=== PATIENT | female | born 1965 | race Caucasian/White ===

== ENCOUNTER 2018-11-23 12:28 | Emergency (ER) | payer OTHER ==
[~2018-11-23] VITALS: Ht 160 cm; Wt 68.0 kg
[2018-11-23] MEDS ORDERED: KETOROLAC TROMETHAMINE INJ 30 MG/ML VIAL ONE (12:40)
--- NOTE | 2018-11-23 12:45 | NUR ---
[id number], FROM 03/13, C/O R SHOULDER PAIN, S/P FALL, DIZZY, COUGH, BLURRED VISION, + ETOH. PATIENT SCREAMING AND YELLING IN THE ROOM, RESTLESS. MD AWARE.
[2018-11-23] MEDS ORDERED: GABA-532 PO (12:52)
[2018-11-23] MEDS ORDERED: INSU100I26 SQ (12:52)
[2018-11-23] MEDS ORDERED: ATOR10TA PO (12:52)
[2018-11-23] MEDS ORDERED: FENO200C PO (12:52)
[2018-11-23] MEDS ORDERED: OMEP20CA10 PO (12:52)
[2018-11-23] MEDS ORDERED: NAPR-1192 PO (12:52)
[2018-11-23] MEDS ORDERED: LISI-607 PO (12:52)
[2018-11-23] MEDS ORDERED: SITA100T PO (12:52)
[2018-11-23] MEDS ORDERED: GLIP10TA11 PO (12:52)
--- NOTE | 2018-11-23 12:54 | NUR ---
Patient wants to leave against medical advice, MD aware. Patient refused treatment and to be seen by the doctors in this hospital. Explained risks and benefits and alternatives, patient verbalized understanding. Per patient, "im fine i want to get out of here, you asians and lithuanian and who knows what." Peripheral IV removed. Patient left the facility in stable condition.
[2018-11-23] MEDS ORDERED: KETOROLAC TROMETHAMINE INJ 30 MG/ML VIAL IV ONE (13:00)
[2018-11-23] MEDS ORDERED: IV NS 0.9% 1,000 ML BAG IV ONE (13:00)
[2018-11-23 13:02] VITALS: BP 118/65
== END 2018-11-23 13:03 | disposition left against medical advice (07) ==
LOC: ER 12:32
DX: F10.129 Alcohol abuse with intoxication, unspecified (principal); R07.89 Other chest pain; E11.9 Type 2 diabetes mellitus without complications; I10 Essential (primary) hypertension; Y90.9 Presence of alcohol in blood, level not specified; Z88.1 Allergy status to other antibiotic agents; Z79.4 Long term (current) use of insulin
CPT/HCPCS: 96374; 99283; J1885

== ENCOUNTER 2019-09-01 09:48 | Emergency (ER) | payer OTHER ==
[~2019-09-01] VITALS: Ht 167.6 cm; Wt 74.8 kg
[~2019-09-01 09:48] MED LIST: ATOR10TA PO; FENO200C PO; GABA-532 PO; GLIP10TA11 PO; INSU100I26 SQ; LISI-607 PO; NAPR-1192 PO; OMEP20CA15 PO; SITA100T PO
[2019-09-01] MEDS ORDERED: ONDANSETRON HCL/PF 4 MG/2 ML VIAL IVP ONE (10:00)
[2019-09-01] MEDS ORDERED: IV NS 0.9% 1,000 ML BAG IV ONE (10:00)
[2019-09-01] MEDS ORDERED: ONDANSETRON HCL/PF 4 MG/2 ML VIAL ONE (10:12)
[2019-09-01 10:15] LABS: BASOPHILS # (AUTO) 0.1 /CMM (0.0-0.2); EOSINOPHILS % (AUTO) 1.6 % (0.0-6.0); HEMATOCRIT 41 % (33-45); HEMOGLOBIN 13.5 g/dL (11.5-14.8); LYMPHOCYTES # (AUTO) 5.8 /CMM (0.8-4.8); LYMPHOCYTES % (AUTO) 50.6 % (20.0-44.0); MEAN CORPUSCULAR HGB CONC 33 g/dl (31.0-36.0); MEAN CORPUSCULAR VOLUME 87 fL (82-100); MONOCYTES # (AUTO) 0.6 /CMM (0.1-1.30); MONOCYTES % (AUTO) 5.2 % (2.0-12.0); NEUTROPHILS # (AUTO) 4.8 /CMM (1.8-8.9); NEUTROPHILS % (AUTO) 41.6 % (43.0-81.0); PLATELET COUNT (AUTO) 259 /CMM (150-450); RED BLOOD CELL COUNT(AUTO) 4.72 MIL/uL (4.0-5.2); WHITE BLOOD COUNT (AUTO) 11.5 K/uL (4.3-11.0)
--- NOTE | 2019-09-01 10:21 | NUR ---
patient BIB paramedics c/o nausea vomiting and diarrhea, and epigastric pain x 3 days. On room air, breathing evenly and unlabored. connected to the monitor and pulse ox. kept comfortable, will continue to monitor accordingly.
[2019-09-01 10:25] LABS: CALCIUM, SERUM 8.6 mg/dL (8.5-10.1); CARBON DIOXIDE 23 mmol/L (21-32); CHLORIDE 99 mmol/L (98-107); GLUCOSE 255 mg/dL (74-106); POTASSIUM 3.9 mmol/L (3.5-5.1); SODIUM SERUM 134 mmol/L (136-145); UREA NITROGEN, BLOOD 14 mg/dL (7-18)
[2019-09-01 10:31] LABS: ALANINE AMINOTRANSFERASE 80 U/L (12-78); ALBUMIN 3.7 g/dL (3.4-5.0); ALKALINE PHOSPHATASE 161 U/L (46-116); ASPARTATE AMINOTRANSFERASE 30 U/L (15-37); BILIRUBIN,DIRECT 0.1 mg/dL (0.0-0.2); BILIRUBIN,TOTAL 0.2 mg/dL (0.2-1.0); TOTAL PROTEIN, SERUM 7.7 g/dL (6.4-8.2)
[2019-09-01 11:24] VITALS: BP 141/81
--- NOTE | 2019-09-01 11:25 | NUR ---
Patient discharged to home in stable condition. Written and verbal after care instructions given. Patient verbalizes understanding of instruction.IV removed. Catheter intact and site benign. Pressure and 4x4 applied to site. No bleeding noted.
== END 2019-09-01 11:25 | disposition home or self-care (01) ==
LOC: ER 09:57
DX: B34.9 Viral infection, unspecified (principal); R11.2 Nausea with vomiting, unspecified; I10 Essential (primary) hypertension; E11.9 Type 2 diabetes mellitus without complications; F17.200 Nicotine dependence, unspecified, uncomplicated; Z88.1 Allergy status to other antibiotic agents; Z79.4 Long term (current) use of insulin; Z79.899 Other long term (current) drug therapy
CPT/HCPCS: 36415; 71045; 80048; 80076; 84484; 85025; 93005; 96361; 96374; 99284; J2405; J7030

== ENCOUNTER 2019-09-22 04:41 | Emergency (ER) | payer OTHER ==
[~2019-09-22] VITALS: Ht 160 cm; Wt 63.5 kg
[2019-09-22] MEDS ORDERED: ONDANSETRON HCL/PF 4 MG/2 ML VIAL ONE (04:53)
[2019-09-22] MEDS ORDERED: MORPHINE SULFATE INJ 4 MG/ML DISP.SYRIN ONE (04:53)
--- NOTE | 2019-09-22 04:55 | NUR ---
PT BIBA C/O MID EPIGASTRIC ABDOMINAL PAIN SINCE SAT 06/12 +NVD. PER PT SHE DIDNT TAKE HER INSULIN SINCE SAT. PT AAOX4, VSS, BREATHING EVEN AND UNLABORED ON ROOM AIR W/ AND NOTED. CONNECTED TO THE MONITOR AND POX.
[2019-09-22] MEDS ORDERED: IV NS 0.9% 1,000 ML BAG IV ONE (05:00)
[2019-09-22] MEDS ORDERED: MORPHINE SULFATE INJ 2 MG/ML DISP.SYRIN IV ONE ×2 (05:00→06:30)
[2019-09-22] MEDS ORDERED: ONDANSETRON HCL/PF 4 MG/2 ML VIAL IVP ONE (05:00)
--- NOTE | 2019-09-22 05:05 | NUR ---
BLOOD COLLECTED AND SENT TO LAB
[2019-09-22 05:16] LABS: BASOPHILS # (AUTO) 0.1 /CMM (0.0-0.2); BASOPHILS % (AUTO) 1.2 % (0.0-2.0); EOSINOPHILS % (AUTO) 3.2 % (0.0-6.0); HEMATOCRIT 40 % (33-45); HEMOGLOBIN 12.9 g/dL (11.5-14.8); LYMPHOCYTES # (AUTO) 2.9 /CMM (0.8-4.8); LYMPHOCYTES % (AUTO) 25.4 % (20.0-44.0); MEAN CORPUSCULAR HGB CONC 32 g/dl (31.0-36.0); MEAN CORPUSCULAR VOLUME 87 fL (82-100); MONOCYTES # (AUTO) 0.7 /CMM (0.1-1.30); MONOCYTES % (AUTO) 5.8 % (2.0-12.0); NEUTROPHILS # (AUTO) 7.4 /CMM (1.8-8.9); NEUTROPHILS % (AUTO) 64.4 % (43.0-81.0); PLATELET COUNT (AUTO) 329 /CMM (150-450); RED BLOOD CELL COUNT(AUTO) 4.57 MIL/uL (4.0-5.2); WHITE BLOOD COUNT (AUTO) 11.5 K/uL (4.3-11.0)
--- NOTE | 2019-09-22 05:20 | NUR ---
PT AMBULATED TO THE RESTROOM
--- NOTE | 2019-09-22 05:30 | NUR ---
PT BACK FROM THE RESTROOM.URINE SAMPLE SENT TO LAB
[2019-09-22 05:38] LABS: CALCIUM, SERUM 8.8 mg/dL (8.5-10.1); CARBON DIOXIDE 23 mmol/L (21-32); CHLORIDE 101 mmol/L (98-107); CREATININE 1.4 mg/dL (0.6-1.3); GLUCOSE 217 mg/dL (74-106); POTASSIUM 3.9 mmol/L (3.5-5.1); SODIUM SERUM 136 mmol/L (136-145); UREA NITROGEN, BLOOD 45 mg/dL (7-18)
[2019-09-22 05:43] LABS: APPEARANCE,URINE Clear (CLEAR); BILIRUBIN,URINE Negative (NEGATIVE); BLOOD, URINE Negative Ery/uL (NEGATIVE); COLOR,URINE Yellow (YELLOW); KETONES,URINE Negative (NEGATIVE); LEUKOCYTE ESTERASE ,URINE Negative (NEGATIVE); NITRITE, URINE Negative (NEGATIVE); PH,URINE 5.5 (5.0-8.0); PROTEIN,URINE Negative (NEGATIVE); UGLUCOSE Negative (NEGATIVE); UROBILINOGEN,URINE 0.2 EU/dL (0.2)
[2019-09-22 05:43] LABS: ALANINE AMINOTRANSFERASE 37 U/L (12-78); ALBUMIN 3.7 g/dL (3.4-5.0); ALKALINE PHOSPHATASE 85 U/L (46-116); ASPARTATE AMINOTRANSFERASE 18 U/L (15-37); BILIRUBIN,DIRECT 0.1 mg/dL (0.0-0.2); BILIRUBIN,TOTAL 0.4 mg/dL (0.2-1.0); LIPASE 164 U/L (73-393); TOTAL PROTEIN, SERUM 7.4 g/dL (6.4-8.2)
[2019-09-22] MEDS ORDERED: MORPHINE SULFATE INJ 2 MG/ML DISP.SYRIN ONE (06:26)
[2019-09-22 07:23] VITALS: BP 116/54
== END 2019-09-22 07:23 | disposition home or self-care (01) ==
LOC: ER 04:41
DX: R10.11 Right upper quadrant pain (principal); R10.12 Left upper quadrant pain; R11.2 Nausea with vomiting, unspecified; I10 Essential (primary) hypertension; E11.9 Type 2 diabetes mellitus without complications; F17.200 Nicotine dependence, unspecified, uncomplicated; Z88.1 Allergy status to other antibiotic agents; Z79.4 Long term (current) use of insulin; Z79.899 Other long term (current) drug therapy
CPT/HCPCS: 36415; 71045; 74176; 80048; 80076; 81001; 82010; 82962; 83690; 84484; 85025; 85730; 93005; 96361; 96374; 96375; 96376; 99284; J2270 ×2; J2405; J7030; 81000-TC

== ENCOUNTER 2019-11-12 06:15 | Emergency (ER) | payer OTHER ==
[~2019-11-12] VITALS: Ht 160 cm; Wt 60.3 kg
--- NOTE | 2019-11-12 06:39 | NUR ---
BALBIR FROM HOME FOR CHIEF COMPLAINT OF NON RADIATING CP, THAT FEELS LIKE CRUSHING PRESSURE. Pt ADMITS TO DRINKING ALCOHOL EARLIER TODAY. Pt IN BED, PLACED ON MONITOR. VS STABLE. WAITING TO BE SEEN BY .
--- NOTE | 2019-11-12 06:54 | NUR ---
CXR BEING DONE AT BEDSIDE
--- NOTE | 2019-11-12 06:54 | NUR ---
SEEN BY MD AT BEDSIDE
[2019-11-12] MEDS ORDERED: ACETAMINOPHEN 650 MG/20.3 ML UDC PO ONE (07:00)
[2019-11-12] MEDS ORDERED: IV NS 0.9% 1,000 ML BAG IV ONE (07:00)
[2019-11-12] MEDS ORDERED: ASPIRIN 325 MG TABLET PO ONE (07:00)
--- NOTE | 2019-11-12 07:25 | NUR ---
IV ACCESS STARTED ON LAC #20G. BLOOD DRAWN FOR LABS. IVF NS RUNNING.
[2019-11-12] MEDS ORDERED: ACETAMINOPHEN 325 MG TABLET ONE (07:26)
[2019-11-12] MEDS ORDERED: ASPIRIN 325 MG TABLET ONE (07:26)
[2019-11-12 07:28] LABS: BASOPHILS # (AUTO) 0.1 /CMM (0.0-0.2); BASOPHILS % (AUTO) 1.4 % (0.0-2.0); EOSINOPHILS % (AUTO) 1.1 % (0.0-6.0); HEMATOCRIT 43 % (33-45); LYMPHOCYTES # (AUTO) 5.2 /CMM (0.8-4.8); MEAN CORPUSCULAR HGB CONC 33 g/dl (31.0-36.0); MEAN CORPUSCULAR VOLUME 87 fL (82-100); MONOCYTES # (AUTO) 0.3 /CMM (0.1-1.30); MONOCYTES % (AUTO) 3.5 % (2.0-12.0); PLATELET COUNT (AUTO) 323 /CMM (150-450); RED BLOOD CELL COUNT(AUTO) 4.94 MIL/uL (4.0-5.2); WHITE BLOOD COUNT (AUTO) 9.9 K/uL (4.3-11.0)
--- NOTE | 2019-11-12 07:40 | NUR ---
[facility] FOR Pt's CALLIE. Pt IS IN BED. NO S/S OF ACUTE DISTRESS OF SOB NOTED.
--- NOTE | 2019-11-12 07:45 | NUR ---
PATIENT IS AWAKE WITH EPISODES OF CONFUSION. PATIENT REMAINS STABLE IN NO DISTRESS. WILL CONITNUE TO MONITOR
[2019-11-12 07:55] LABS: ALANINE AMINOTRANSFERASE 40 U/L (12-78); ALBUMIN 4.2 g/dL (3.4-5.0); ALKALINE PHOSPHATASE 161 U/L (46-116); ASPARTATE AMINOTRANSFERASE 34 U/L (15-37); BILIRUBIN,DIRECT 0.1 mg/dL (0.0-0.2); BILIRUBIN,TOTAL 0.2 mg/dL (0.2-1.0); CALCIUM, SERUM 8.9 mg/dL (8.5-10.1); CARBON DIOXIDE 26 mmol/L (21-32); CHLORIDE 101 mmol/L (98-107); GLUCOSE 260 mg/dL (74-106); LIPASE 196 U/L (73-393); POTASSIUM 4.9 mmol/L (3.5-5.1); SODIUM SERUM 141 mmol/L (136-145); TOTAL PROTEIN, SERUM 8.4 g/dL (6.4-8.2); UREA NITROGEN, BLOOD 19 mg/dL (7-18)
--- NOTE | 2019-11-12 08:06 | NUR ---
Patient discharged to home in stable condition. Written and verbal after care instructions given. Patient verbalizes understanding of instruction. IV removed. Catheter intact and site benign. Pressure and 4x4 applied to site. No bleeding noted.
[2019-11-12 08:19] VITALS: BP 128/82
== END 2019-11-12 08:15 | disposition home or self-care (01) ==
LOC: ER 06:15
DX: E11.65 Type 2 diabetes mellitus with hyperglycemia (principal); R11.2 Nausea with vomiting, unspecified; I10 Essential (primary) hypertension; Z88.1 Allergy status to other antibiotic agents; Z79.899 Other long term (current) drug therapy; Z79.4 Long term (current) use of insulin
CPT/HCPCS: 36415; 71045; 80048; 80076; 82962; 83690; 84484; 85025; 93005; 96360; 99285; J7030

== ENCOUNTER 2021-08-04 19:03 | Emergency (ER) | payer OTHER ==
[~2021-08-04] VITALS: Ht 160 cm; Wt 63.5 kg
[~2021-08-04 19:03] MED LIST changes: -LISI-607 PO; +LISI-768 PO
--- NOTE | 2021-08-04 19:26 | NUR ---
LAB AT BEDSIDE
[2021-08-04 19:36] LABS: BASOPHILS # (AUTO) 0.1 K/uL (0.0-0.2); BASOPHILS % (AUTO) 0.7 % (0.0-2.0); EOSINOPHILS % (AUTO) 0.2 % (0.0-6.0); HEMATOCRIT 38 % (33-45); HEMOGLOBIN 12.5 g/dL (11.5-14.8); LYMPHOCYTES # (AUTO) 5.4 K/uL (0.8-4.8); LYMPHOCYTES % (AUTO) 41.3 % (20.0-44.0); MEAN CORPUSCULAR HGB CONC 33 g/dl (31.0-36.0); MEAN CORPUSCULAR VOLUME 89 fL (82-100); MONOCYTES # (AUTO) 0.6 K/uL (0.1-1.30); MONOCYTES % (AUTO) 4.3 % (2.0-12.0); NEUTROPHILS % (AUTO) 53.5 % (43.0-81.0); PLATELET COUNT (AUTO) 241 K/uL (150-450); RED BLOOD CELL COUNT(AUTO) 4.27 MIL/uL (4.0-5.2); WHITE BLOOD COUNT (AUTO) 13.1 K/uL (4.3-11.0)
[2021-08-04 20:16] LABS: ALBUMIN 4.1 g/dL (3.4-5.0); ALCOHOL, BLOOD 364 mg/dL (0-0); ALKALINE PHOSPHATASE 135 U/L (46-116); BILIRUBIN,DIRECT 0.1 mg/dL (0.0-0.2); BILIRUBIN,TOTAL 0.4 mg/dL (0.2-1.0); CALCIUM, SERUM 8.3 mg/dL (8.5-10.1); CARBON DIOXIDE 18 mmol/L (21-32); CHLORIDE 103 mmol/L (98-107); CREATININE 1.8 mg/dL (0.6-1.3); GLUCOSE 204 mg/dL (74-106); POTASSIUM 4.5 mmol/L (3.5-5.1); SODIUM SERUM 140 mmol/L (136-145); UREA NITROGEN, BLOOD 39 mg/dL (7-18)
--- NOTE | 2021-08-04 20:26 | NUR ---
URINE COLLECTED AND SENT TO LAB
[2021-08-04 20:39] LABS: ACETAMINOPHEN < 0 ug/ml (10-30)
[2021-08-04 20:55] LABS: ALANINE AMINOTRANSFERASE 120 U/L (12-78); ASPARTATE AMINOTRANSFERASE 116 U/L (15-37)
[2021-08-04 20:56] LABS: BILIRUBIN,URINE SMALL (NEGATIVE); COLOR,URINE YELLOW (YELLOW); LEUKOCYTE ESTERASE ,URINE Trace (NEGATIVE); NITRITE, URINE Negative (NEGATIVE); PH,URINE 5.5 (5.0-8.0); PROTEIN,URINE 100 mg/dl (NEGATIVE); UGLUCOSE Negative (NEGATIVE); UROBILINOGEN,URINE 0.2 EU/dL (0.2)
[2021-08-04 20:57] LABS: BACTERIA,URINE Few /HPF (None Seen); RBC,URINE 21-50 /HPF (0-2); SQUAMOUS EPITHELIAL CELL,UR Few /HPF (None Seen)
[2021-08-05 00:25] VITALS: BP 133/70
--- NOTE | 2021-08-05 00:25 | NUR ---
Patient discharged to home in stable condition. Written and verbal after care instructions given. Patient verbalizes understanding of instruction.
== END 2021-08-05 00:25 | disposition home or self-care (01) ==
LOC: ER 19:10
DX: F10.129 Alcohol abuse with intoxication, unspecified (principal); I10 Essential (primary) hypertension; E11.9 Type 2 diabetes mellitus without complications; F17.200 Nicotine dependence, unspecified, uncomplicated; Z88.1 Allergy status to other antibiotic agents; Z79.899 Other long term (current) drug therapy; Z79.4 Long term (current) use of insulin; Y90.9 Presence of alcohol in blood, level not specified
CPT/HCPCS: 36415; 80048-TC; 80076-TC; 81001; 85025-TC; G0480

== ENCOUNTER 2021-11-01 16:29 | Emergency (ER) | payer OTHER ==
[~2021-11-01] VITALS: Ht 162.6 cm; Wt 65.8 kg
--- NOTE | 2021-11-01 16:37 | NUR ---
To ER bed 9, [id number] home, dizziness, abdominal chest wall discomfort. 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
[2021-11-01] MEDS ORDERED: IV NS 0.9% 1,000 ML BAG IV ONE ×2 (17:00→21:30)
[2021-11-01 17:13] LABS: BASOPHILS % (AUTO) 0.3 % (0.0-2.0); EOSINOPHILS % (AUTO) 0.1 % (0.0-6.0); HEMATOCRIT 39 % (33-45); LYMPHOCYTES # (AUTO) 1.9 K/uL (0.8-4.8); LYMPHOCYTES % (AUTO) 15.8 % (20.0-44.0); MEAN CORPUSCULAR HGB CONC 33 g/dl (31.0-36.0); MEAN CORPUSCULAR VOLUME 90 fL (82-100); MONOCYTES # (AUTO) 1.7 K/uL (0.1-1.30); MONOCYTES % (AUTO) 14.2 % (2.0-12.0); NEUTROPHILS # (AUTO) 8.5 K/uL (1.8-8.9); NEUTROPHILS % (AUTO) 69.6 % (43.0-81.0); PLATELET COUNT (AUTO) 325 K/uL (150-450); RED BLOOD CELL COUNT(AUTO) 4.37 MIL/uL (4.0-5.2); WHITE BLOOD COUNT (AUTO) 12.2 K/uL (4.3-11.0)
[2021-11-01] MEDS ORDERED: KETOROLAC TROMETHAMINE 15 MG/ML VIAL ONE (17:24)
[2021-11-01 17:29] LABS: ALANINE AMINOTRANSFERASE 47 U/L (12-78); ALBUMIN 4.2 g/dL (3.4-5.0); ALKALINE PHOSPHATASE 136 U/L (46-116); ASPARTATE AMINOTRANSFERASE 56 U/L (15-37); BILIRUBIN,DIRECT 0.2 mg/dL (0.0-0.2); BILIRUBIN,TOTAL 0.3 mg/dL (0.2-1.0); GLUCOSE 194 mg/dL (74-106); LIPASE 463 U/L (73-393); TOTAL PROTEIN, SERUM 9.3 g/dL (6.4-8.2)
[2021-11-01 17:40] LABS: CALCIUM, SERUM 5.3 mg/dL (8.5-10.1); CARBON DIOXIDE 10 mmol/L (21-32); CHLORIDE 71 mmol/L (98-107); CREATININE 11.6 mg/dL (0.6-1.3); POTASSIUM 2.4 mmol/L (3.5-5.1); SODIUM SERUM 117 mmol/L (136-145); UREA NITROGEN, BLOOD 94 mg/dL (7-18)
[2021-11-01] MEDS ORDERED: KETOROLAC TROMETHAMINE INJ 30 MG/ML VIAL IV ONE (18:00)
--- NOTE | 2021-11-01 18:00 | NUR ---
CALLED [facility] [place] AND OPENED UP A CASE FOR THE PT
--- NOTE | 2021-11-01 18:01 | NUR ---
GIACOMO THOMAS MD. FOR A MD TO CONSULT
--- NOTE | 2021-11-01 18:12 | NUR ---
COVID SWAB DONE AND URINE COLLECTED AND SENT TO LAB
[2021-11-01] MEDS ORDERED: ASPIRIN 81 MG TAB.CHEW PO ONE (18:30)
[2021-11-01] MEDS ORDERED: POTASSIUM CHLORIDE 20 MEQ TAB.PRT.SR PO ONE ×2 (18:30→18:48)
[2021-11-01] MEDS ORDERED: ASPIRIN EC 81 MG TABLET.DR PO ONE (18:47)
[2021-11-01 19:04] LABS: BILIRUBIN,URINE MODERATE (NEGATIVE); COLOR,URINE YELLOW (YELLOW); LEUKOCYTE ESTERASE ,URINE MODERATE (NEGATIVE); NITRITE, URINE NEGATIVE (NEGATIVE); PH,URINE 8.5 (5.0-8.0); PROTEIN,URINE TRACE mg/dl (NEGATIVE); UGLUCOSE NEGATIVE (NEGATIVE)
[2021-11-01 20:00] LABS: BACTERIA,URINE Many /HPF (None Seen); SQUAMOUS EPITHELIAL CELL,UR Moderate /HPF (None Seen); WBC,URINE 21-50 /HPF (0-3)
[2021-11-01] MEDS ORDERED: CEFTRIAXONE 1GM BAG (ER ONLY) 50 ML IV ONE ×2 (20:30→21:31)
--- NOTE | 2021-11-01 21:24 | NUR ---
ACCEPTING HOSPITAL INFO: [facility] ER Accepting MD SALOME Zaidi NUMBER [phone] ALS PRN AMB ETA [id number]
--- NOTE | 2021-11-01 21:25 | NUR ---
[facility] ER Accepting MD MCMAHON V. NUMBER [phone] ALS PRN AMB ETA [id number]
--- NOTE | 2021-11-01 21:31 | NUR ---
PER COLTON CALL BACK IF ANY CHANGES.
[2021-11-01 22:11] VITALS: BP 101/57
--- NOTE | 2021-11-01 22:25 | NUR ---
REPORT GIVEN ERICK FORBES FOR CALLIE
--- NOTE | 2021-11-01 22:47 | NUR ---
[facility] AT BEDSIDE
--- NOTE | 2021-11-01 22:55 | NUR ---
PT TX TO TRUMBULL FOR CALLIE
== END 2021-11-01 23:20 | disposition short-term general hospital (02) ==
LOC: ER 16:32
DX: N17.9 Acute kidney failure, unspecified (principal); E87.6 Hypokalemia; Z20.822 Contact with and (suspected) exposure to COVID-19; R94.31 Abnormal electrocardiogram [ECG] [EKG]; E11.9 Type 2 diabetes mellitus without complications; I10 Essential (primary) hypertension; Z79.4 Long term (current) use of insulin; Z79.84 Long term (current) use of oral hypoglycemic drugs; Z79.899 Other long term (current) drug therapy; Z88.1 Allergy status to other antibiotic agents
CPT/HCPCS: 36415; 71045; 80048; 80076; 81001; 83605; 83690; 84145; 84484; 85025; 87040 ×2; 87077; 87086; 87186; 87426; 93005; 96361; 96365; 96375; 99285; C9803; J0696; J1885; J7030

== ENCOUNTER 2022-01-04 12:37 | Emergency (ER) | payer OTHER ==
[~2022-01-04] VITALS: Ht 165.1 cm; Wt 59.0 kg
--- NOTE | 2022-01-04 12:47 | NUR ---
[id number] FOR ALTERED MENTAL STATUS. ALERT AND ORIENTED X2. THE PATIENT ADMITS THAT SHE DRUNK ALCOHOL TODAY. DOES NOT SPECIFY WHAT KIND.
[2022-01-04] MEDS ORDERED: IV NS 0.9% 1,000 ML BAG IV ONE (13:00)
[2022-01-04 13:13] LABS: BASOPHILS # (AUTO) 0.1 K/uL (0.0-0.2); BASOPHILS % (AUTO) 0.8 % (0.0-2.0); EOSINOPHILS % (AUTO) 0.4 % (0.0-6.0); HEMATOCRIT 39 % (33-45); HEMOGLOBIN 12.5 g/dL (11.5-14.8); LYMPHOCYTES # (AUTO) 6.4 K/uL (0.8-4.8); LYMPHOCYTES % (AUTO) 49.7 % (20.0-44.0); MEAN CORPUSCULAR HGB CONC 32 g/dl (31.0-36.0); MEAN CORPUSCULAR VOLUME 88 fL (82-100); MONOCYTES # (AUTO) 0.7 K/uL (0.1-1.30); MONOCYTES % (AUTO) 5.2 % (2.0-12.0); NEUTROPHILS # (AUTO) 5.7 K/uL (1.8-8.9); NEUTROPHILS % (AUTO) 43.9 % (43.0-81.0); PLATELET COUNT (AUTO) 349 K/uL (150-450); RED BLOOD CELL COUNT(AUTO) 4.43 MIL/uL (4.0-5.2); WHITE BLOOD COUNT (AUTO) 12.9 K/uL (4.3-11.0)
[2022-01-04 13:25] LABS: ALANINE AMINOTRANSFERASE 89 U/L (12-78); ALBUMIN 4.2 g/dL (3.4-5.0); ALCOHOL, BLOOD 316 mg/dL (0-0); ALKALINE PHOSPHATASE 126 U/L (46-116); ASPARTATE AMINOTRANSFERASE 54 U/L (15-37); BILIRUBIN,TOTAL 0.2 mg/dL (0.2-1.0); CALCIUM, SERUM 8.7 mg/dL (8.5-10.1); CARBON DIOXIDE 21 mmol/L (21-32); CHLORIDE 106 mmol/L (98-107); CREATININE 1.6 mg/dL (0.6-1.3); GLUCOSE 180 mg/dL (74-106); POTASSIUM 4.6 mmol/L (3.5-5.1); SODIUM SERUM 142 mmol/L (136-145); TOTAL PROTEIN, SERUM 7.9 g/dL (6.4-8.2); UREA NITROGEN, BLOOD 49 mg/dL (7-18)
[2022-01-04 13:30] LABS: ACETAMINOPHEN < 10 ug/ml (10-30)
--- NOTE | 2022-01-04 13:31 | NUR ---
PT PROVIDED WITH BED MERLOS, UNABLE TO GIVE URINE.
--- NOTE | 2022-01-04 14:48 | NUR ---
PT STATED THAT SHE CALLED HERSELF A TAXI, PT IS ALERT AND ABLE TO STATE HER NAME, YEAR, AND WHERE SHE IS AT. PT IS ABLE TO AMBULATE ON HER OWN WITHOUT ASSISTANCE. ASKED PT TO STAY A WHILE FOR HER ALCOHOL LEVELS TO GO DOWN, PT SIGNED AGAINST MEDICAL ADVICE PAPERS. IV WAS REMOVED, PRESSURE APPLIED.
[2022-01-04 15:05] VITALS: BP 147/75
== END 2022-01-04 15:05 | disposition left against medical advice (07) ==
LOC: ER 12:40
DX: F10.129 Alcohol abuse with intoxication, unspecified (principal); I10 Essential (primary) hypertension; E11.9 Type 2 diabetes mellitus without complications; F17.200 Nicotine dependence, unspecified, uncomplicated; Z88.8 Allergy status to other drugs, medicaments and biological substances; Z79.899 Other long term (current) drug therapy; Y90.8 Blood alcohol level of 240 mg/100 ml or more
CPT/HCPCS: 36415; 80048; 80076; 80143; 80320; 84484; 85025; 93005; 96360; 99284; J7030; G0480